=== PATIENT | male | born 1965 | race Caucasian/White ===

== ENCOUNTER 2017-09-07 10:37 | Emergency (ER) | payer SELFPAY ==
[~2017-09-07] VITALS: Ht 165.1 cm; Wt 65.0 kg
[2017-09-07] MEDS ORDERED: HALOPERIDOL LACTATE 5MG/ML VIAL IM ONE (11:30)
[2017-09-07 11:40] LABS: BASOPHILS % 0.1 % (0.0-2.0); EOSINOPHILS % 0.1 % (0.0-5.0); HEMOGLOBIN. 16.1 g/dL (14.0-18.0); LYMPHOCYTES % 21.2 % (20.0-50.0); MEAN CORPUSCULAR HEMOGLOBIN 32.2 pg (28.0-32.0); MEAN CORPUSCULAR VOLUME 94.3 fL (80.0-94.0); MEAN PLATELET VOLUME 6.9 fl (7.4-10.4); NEUTROPHILS % 73.6 % (40.0-76.0); PLATELET 328 x1000/uL (130-400); RED BLOOD CELL COUNT 4.98 mill/uL (4.7-6.1); RED CELL DISTRIBUTION WIDTH 15.3 % (11.6-14.6)
[2017-09-07 11:50] LABS: CHLORIDE 113 mEq/L (98-107)
[2017-09-07 12:07] LABS: ETHANOL BLOOD 466 mg/dL
[2017-09-07 12:40] LABS: *AMPHETAMINES SCREEN URINE NEGATIVE (NEGATIVE); *BARBITURATES SCREEN URINE NEGATIVE (NEGATIVE); *BENZODIAZEPINES SCREEN URINE NEGATIVE (NEGATIVE); *COCAINE SCREEN URINE NEGATIVE (NEGATIVE); METHADONE URINE SCREEN NEGATIVE (NEGATIVE); OPIATES URINE SCREEN NEGATIVE (NEGATIVE)
[2017-09-07 12:41] LABS: CANNABINOID URINE SCREEN NEGATIVE (NEGATIVE); PHENCYCLIDINE URINE SCREEN NEGATIVE (NEGATIVE)
[2017-09-08] MEDS ORDERED: DEXT 5%/0.9% NACL 1,000 ML IV ONE (07:01)
[2017-09-08] MEDS ORDERED: LORAZEPAM 2MG/ML CPJ IV ONE (07:15)
[2017-09-08] MEDS ORDERED: KCL 20MEQ/100ML PREMIX 100 ML IV ONE (07:15)
[2017-09-08 10:39] VITALS: BP 129/87
== END 2017-09-08 10:48 | disposition home or self-care (01) ==
LOC: ER 10:52
DX: F10.129 Alcohol abuse with intoxication, unspecified (principal); Y90.8 Blood alcohol level of 240 mg/100 ml or more; E87.0 Hyperosmolality and hypernatremia; R00.0 Tachycardia, unspecified; Z59.0 Homelessness
CPT/HCPCS: 36415; 70450; 72125; 80053; 80305; 85025; 96361; 96372; 96374; 99285; G0482; J1630; J2060; J3480; J7042; Z7610